=== PATIENT | male | born 1960 | race Caucasian/White ===

== ENCOUNTER 2021-03-07 23:35 | Inpatient (IN) | payer MEDICARE, OTHER ==
[~2021-03-07] VITALS: Ht 170.2 cm; Wt 90.7 kg
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
[2021-03-08 03:45] VITALS: BP 102/63
[2021-03-08] MEDS ORDERED: MAG HYDROX/AL HYDROX/SIMETH 30 ML UDC PO PRN ×2 (04:30→17:30)
[2021-03-08] MEDS ORDERED: ACETAMINOPHEN 325 MG TABLET PO PRN ×2 (04:30→17:30)
[2021-03-08] MEDS ORDERED: BLOOD SUGAR DIAGNOSTIC 1 EACH STRIP IN ONE (04:30)
[2021-03-08] MEDS ORDERED: MAGNESIUM HYDROXIDE 30 ML UDC PO PRN ×2 (04:30→17:30)
[2021-03-08] MEDS ORDERED: NICO-676 TP (05:09)
[2021-03-08] MEDS ORDERED: SENN-261 PO (05:09)
[2021-03-08] MEDS ORDERED: DIVA500T54 PO (05:09)
[2021-03-08] MEDS ORDERED: DIPH-530 PO (05:09)
[2021-03-08] MEDS ORDERED: DOCU-141 PO (05:09)
[2021-03-08] MEDS ORDERED: MINE133E RC (05:09)
[2021-03-08] MEDS ORDERED: QUET100T PO ×2 (05:09)
[2021-03-08] MEDS ORDERED: TRAZ300T2 PO (05:09)
[2021-03-08] MEDS ORDERED: QUET300T2 PO (05:09)
[2021-03-08] MEDS ORDERED: BISA10SU61 RC (05:09)
[2021-03-08 07:04] LABS: BILIRUBIN,TOTAL 0.2 mg/dL (0.2-1.0); CALCIUM, SERUM 9.1 mg/dL (8.5-10.1); CREATININE 0.8 mg/dL (0.6-1.3); POTASSIUM 4.1 mmol/L (3.5-5.1)
[2021-03-08 07:05] LABS: ALBUMIN 3.3 g/dL (3.4-5.0); TOTAL PROTEIN, SERUM 7.3 g/dL (6.4-8.2)
[2021-03-08] MEDS ORDERED: DIPH25TA62 PO (07:35)
[2021-03-08] MEDS ORDERED: NA P133E RC (07:35)
[2021-03-08] MEDS ORDERED: CHLO118L6 TP (07:35)
[2021-03-08] MEDS ORDERED: MAGN400O6 PO (07:35)
[2021-03-08] MEDS ORDERED: LORA-259 PO (07:35)
[2021-03-08] MEDS ORDERED: MAG30ORA PO (07:35)
[2021-03-08] MEDS ORDERED: ACET-868 PO (07:35)
[2021-03-08 08:00] VITALS: BP 101/69
[2021-03-08] MEDS: QUETIAPINE FUMARATE 100 MG TABLET PO SCH ×4 (14:00→23:36)
[2021-03-08] MEDS: DIVALPROEX SODIUM 500 MG TABLET.DR PO SCH ×3 (14:47→23:34)
[2021-03-08] MEDS ORDERED: DIPHENHYDRAMINE HCL 12.5 MG/5 ML UDC PO PRN (17:30)
[2021-03-08] MEDS ORDERED: BISACODYL SUPP (10 MG) 10 MG/SUPP.RECT SUPP.RECT RC PRN (17:30)
[2021-03-08] MEDS ORDERED: NA PHOS,M-B/NA PHOS,DI-BA 1 EA ENEMA RC PRN (17:30)
[2021-03-08] MEDS ORDERED: diphenhydrAMINE HCL ELIX 25 MG/10 ML UDC PO PRN (18:00)
[2021-03-08 20:00] VITALS: BP 135/87
[2021-03-08] MEDS: TRAZODONE 50 MG TABLET PO SCH ×2 (22:00→23:35)
[2021-03-08] MEDS: SENNOSIDES 8.6 MG TABLET PO SCH ×2 (22:00→23:35)
[2021-03-09] MEDS: DOCUSATE SODIUM 100 MG CAPSULE PO SCH ×3 (09:00→17:00)
[2021-03-09] MEDS: QUETIAPINE FUMARATE 100 MG TABLET PO SCH ×4 (09:00→21:32)
[2021-03-09] MEDS: DIVALPROEX SODIUM 500 MG TABLET.DR PO SCH ×4 (09:00→17:00)
[2021-03-09] MEDS: NICOTINE PATCH (14MG) 14 MG PATCH.TD24 TD SCH ×2 (09:00→09:16)
[2021-03-09] MEDS: LORAZEPAM 0.5 MG TABLET PO PRN (09:15)
--- NOTE | 2021-03-09 09:55 | NUR ---
pt. refused all am meds including ativan that's needed.
[2021-03-09] MEDS: ATORVASTATIN 10 MG TABLET PO SCH ×2 (11:00→21:32)
--- NOTE | 2021-03-09 18:41 | NUR ---
refused marline. meds.
--- NOTE | 2021-03-09 20:00 | NUR ---
REFUSED VITAL SIGNS PER SERENA MACK.
--- NOTE | 2021-03-09 20:00 | NUR ---
GPS OPENING NOTE seen patient in the room awake, sitting in chair, no complaints of pain or discomfort this time of assessment. patient appears unkempt, confused at some times. disheveled. pt paranoid states "get the fuck out of my room." reality orientation done. safety and fall precautions in place, q15 min checks will continue to monitor patient for mood, safety and behavior.
--- NOTE | 2021-03-09 21:29 | NUR ---
PT REFUSED EVENING MEDICATION. PT SITTING IN CHAIR IN ROOM. WHEN I ENTERED ROOM PT SHOUTED "GET OUT OF HERE." PT INFORMED THAT HIS MEDICATIONS WERE DUE AND THAT THE DOCTORS THINK ITS IMPORTANT FOR HIM TO TAKE THEM. PT YELLED "I DON'T WANT ANY. GET OUT OF HERE." PT LEFT TO SIT IN ROOM WILL CONT TO MONITOR BEHAVIOR. PT REMAINS SITTING IN CHAIR. WILL CONT TO MONITOR FOR AGGRESSIVE BEHAVIOR.
[2021-03-09] MEDS: TRAZODONE 50 MG TABLET PO SCH (21:32)
[2021-03-09] MEDS: SENNOSIDES 8.6 MG TABLET PO SCH (21:32)
[2021-03-09] MEDS: OLANZAPINE ZYDIS 5 MG TAB.RAPDIS PO SCH (21:33)
--- NOTE | 2021-03-10 00:51 | NUR ---
PT AWAKE; OFFERED PRN SLEEP MEDICATIONS REFUSED. OFFERED SNACKS REFUSED. PT IN ROOM SITTING IN CHAIR; QUIET. WILL CONT TO MONITOR.
[2021-03-10] MEDS: QUETIAPINE FUMARATE 100 MG TABLET PO SCH ×3 (09:00→22:21)
[2021-03-10] MEDS: NICOTINE PATCH (14MG) 14 MG PATCH.TD24 TD SCH (09:00)
[2021-03-10] MEDS: DOCUSATE SODIUM 100 MG CAPSULE PO SCH ×2 (09:00→16:52)
[2021-03-10] MEDS: OLANZAPINE ZYDIS 5 MG TAB.RAPDIS PO SCH ×2 (09:00→22:21)
[2021-03-10] MEDS: DIVALPROEX SODIUM 500 MG TABLET.DR PO SCH ×3 (09:00→16:52)
--- NOTE | 2021-03-10 09:00 | NUR ---
PT. REFUSING AM MEDS.
[2021-03-10] MEDS ORDERED: HALOPERIDOL LACTATE INJ 5 MG/ML VIAL IM STA (09:36)
[2021-03-10] MEDS ORDERED: diphenhydrAMINE HCL 50 MG/ML VIAL IM STA (09:36)
[2021-03-10] MEDS ORDERED: LORAZEPAM INJ 2 MG/ML VIAL IM STA (09:36)
--- NOTE | 2021-03-10 09:40 | NUR ---
PT. LYRIC MOORE AND CHAIR,DR. BEEBE CONTACTED.INJECTIONS ORDERED.
--- NOTE | 2021-03-10 09:55 | NUR ---
RN NOTE- DR BEEBE ORDERED HALDOL 5 MG , ATIVAN 2 MG AND BENADRYL 50 MG IM STAT. ADMINISTERED W STAFF ASSIST. PT LABILE, SCREAMING AND COMBATIVE.
--- NOTE | 2021-03-10 11:10 | NUR ---
RN NOTE- PT CALMER, QUIET SITTING IN CHAIR IN ROOM. ASKED IF PT WANTED FOOD OR FLUIDS AND HE RESPONDED "NO THANKS" CONTINUE TO MONITOR BEHAVIORS. ASSIST PRN. EMERGENCY IM RX EFFECTIVE
--- NOTE | 2021-03-10 14:10 | NUR ---
SNF Contact: SW contacted [facility] ([phone]) and spoke to the hospital admissions officer, Yoanna, who stated that the pt cannot return to the facility.
[2021-03-10 16:00] VITALS: BP 106/79
--- NOTE | 2021-03-10 16:10 | NUR ---
Conservator Contact: SW contacted the pts conservator, Ruben Lance ([phone]), and left a voicemail stating that the SW would like to discuss the pts treatment and discharge plan.
--- NOTE | 2021-03-10 16:47 | NUR ---
Initial Discharge Plan: Pt currently resides at [facility] located at [address] [id number]; ([phone]). Per Yoanna at the facility, pt cannot return. SW will work with the pt and the MD regarding appropriate discharge planning. SW will form a safe and proper discharge plan.
--- NOTE | 2021-03-10 18:30 | NUR ---
back in .med compliant and cooperative since he has had injections.
[2021-03-10] MEDS: TRAZODONE 50 MG TABLET PO SCH (22:20)
[2021-03-10] MEDS: SENNOSIDES 8.6 MG TABLET PO SCH (22:20)
[2021-03-10] MEDS: ATORVASTATIN 10 MG TABLET PO SCH (22:20)
--- NOTE | 2021-03-11 06:48 | NUR ---
GPS RN CLOSING NOTES: PATIENT IS LAYING ON BED SLEEPING. SLEPT 10HRS THIS SHIFT. PATIENT WAS MED COMPLIANT THIS SHIFT. NO S/S OF DISTRESS. RESPIRATION EVEN AND UNLABORED WITH EQUAL RISE AND FALL OF THE CHEST ON ROOM AIR. ALL PATIENT CARE NEEDS HAVE BEEN MET ANTICIPATED. BED IN LOWEST POSITION AND LOCKED WITH SIDE RAILS UP X2. WILL CONTINUE TO MONITOR FOR SAFETY, MOOD AND BEHAVIOR AND ENDORSE TO AM SHIFT
[2021-03-11] MEDS: DIVALPROEX SODIUM 500 MG TABLET.DR PO SCH ×3 (09:00→17:00)
[2021-03-11] MEDS: OLANZAPINE ZYDIS 5 MG TAB.RAPDIS PO SCH ×2 (09:00→21:54)
[2021-03-11] MEDS: NICOTINE PATCH (14MG) 14 MG PATCH.TD24 TD SCH (09:00)
[2021-03-11] MEDS: QUETIAPINE FUMARATE 100 MG TABLET PO SCH ×3 (09:00→21:54)
[2021-03-11] MEDS: DOCUSATE SODIUM 100 MG CAPSULE PO SCH ×2 (09:00→17:00)
--- NOTE | 2021-03-11 13:19 | NUR ---
Pt. refused to take Depakote due for 1300, explained on the importance and offered 3x and still refusing. Pt. said "no thanks".
--- NOTE | 2021-03-11 15:51 | NUR ---
Pt. is highly agitated, aggressive, yelling and screaming loud, banging the side rails of the bed and combative to care to the staffs. Pt. is disruptive to the unit and refusing to take po prn. Dr. Reno made aware of ordered Ativan 2 mg IM, Haldol 5 mg IM and Benadryl 50 mg IM.
[2021-03-11] MEDS ORDERED: HALOPERIDOL LACTATE INJ 5 MG/ML VIAL IM ONE (16:00)
[2021-03-11] MEDS ORDERED: LORAZEPAM INJ 2 MG/ML VIAL IM ONE (16:00)
[2021-03-11] MEDS ORDERED: diphenhydrAMINE HCL 50 MG/ML VIAL IV ONE (16:00)
[2021-03-11] MEDS ORDERED: diphenhydrAMINE HCL 50 MG/ML VIAL IM ONE (16:00)
--- NOTE | 2021-03-11 16:18 | NUR ---
Called the Ruben Barros at [phone] the conservator and left a message to call the unit.
[2021-03-11] MEDS: SENNOSIDES 8.6 MG TABLET PO SCH (21:54)
[2021-03-11] MEDS: TRAZODONE 50 MG TABLET PO SCH (21:54)
[2021-03-11] MEDS: ATORVASTATIN 10 MG TABLET PO SCH (21:54)
[2021-03-12] MEDS: NICOTINE PATCH (14MG) 14 MG PATCH.TD24 TD SCH (09:00)
--- NOTE | 2021-03-12 09:00 | NUR ---
RN NOTE PATIENT CALM AND DIRECTABLE AND MEDICATION COMPLIANT. PO INTAKE GOOD. REQUIRES FREQUENT REDIRECTION. RESPONDING TO INTERNAL STIMULUS.
[2021-03-12] MEDS: OLANZAPINE ZYDIS 5 MG TAB.RAPDIS PO SCH ×2 (09:27→21:53)
[2021-03-12] MEDS: QUETIAPINE FUMARATE 100 MG TABLET PO SCH ×3 (09:27→21:53)
[2021-03-12] MEDS: DOCUSATE SODIUM 100 MG CAPSULE PO SCH ×2 (09:27→17:00)
[2021-03-12] MEDS: DIVALPROEX SODIUM 500 MG TABLET.DR PO SCH ×3 (09:27→17:00)
[2021-03-12] MEDS ORDERED: diphenhydrAMINE HCL 50 MG/ML VIAL IM STA (13:09)
[2021-03-12] MEDS ORDERED: LORAZEPAM INJ 2 MG/ML VIAL IM STA (13:09)
[2021-03-12] MEDS ORDERED: HALOPERIDOL LACTATE INJ 5 MG/ML VIAL IM STA (13:09)
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
--- NOTE | 2021-03-12 14:50 | NUR ---
RN NOTE- PT SLEEPING QUIETLY. RX EFFECTIVE
[2021-03-12] MEDS: ATORVASTATIN 10 MG TABLET PO SCH (21:52)
[2021-03-12] MEDS: TRAZODONE 50 MG TABLET PO SCH (21:53)
[2021-03-12] MEDS: SENNOSIDES 8.6 MG TABLET PO SCH (21:54)
[2021-03-12] MEDS: TEMAZEPAM 7.5 MG CAPSULE PO PRN (22:26)
--- NOTE | 2021-03-12 22:33 | NUR ---
GPS RN NOTES: PATIENT REQUESTED FOR SLEEP MEDICATION. RESTORIL 7.5MG/1CAP GIVEN PO PRN AT 2226. WILL CONTINUE TO MONITOR.
--- NOTE | 2021-03-13 06:47 | NUR ---
GPS RN CLOSING NOTES: PATIENT IS CURRENTLY SLEEPING. SLEPT 8HRS THIS SHIFT AND WAS MED COMPLIANT THIS SHIFT. NO S/S OF DISTRESS. RESPIRATION EVEN AND UNLABORED WITH EQUAL RISE AND FALL OF THE CHEST ON ROOM AIR. ALL PATIENT CARE NEEDS HAVE BEEN MET ANTICIPATED. BED IN LOWEST POSITION AND LOCKED WITH SIDE RAILS UP X2. WILL CONTINUE TO MONITOR FOR SAFETY, MOOD AND BEHAVIOR AND ENDORSE TO AM SHIFT
[2021-03-13] MEDS: QUETIAPINE FUMARATE 100 MG TABLET PO SCH ×3 (09:00→21:37)
[2021-03-13] MEDS: NICOTINE PATCH (14MG) 14 MG PATCH.TD24 TD SCH (09:00)
[2021-03-13] MEDS: DIVALPROEX SODIUM 500 MG TABLET.DR PO SCH ×3 (09:00→17:00)
[2021-03-13] MEDS: OLANZAPINE ZYDIS 5 MG TAB.RAPDIS PO SCH ×2 (09:00→21:53)
[2021-03-13] MEDS: DOCUSATE SODIUM 100 MG CAPSULE PO SCH ×2 (09:00→17:00)
--- NOTE | 2021-03-13 09:25 | NUR ---
Pt. refused for V/S checked, refused to eat breakfast and pt. refused to take meds due for 0900. Explained on the importance and offered 3x and still refusing. Pt. said "No, I don't take meds". Will continue to monitor.
--- NOTE | 2021-03-13 10:20 | NUR ---
Pt. is highly agitated, aggressive, combative, striking to staffs, screaming and yelling. Dr. Emerson in the unit and ordered Ativan 2 mg IM, Haldol 5 mg IM and Benadryl 50 mg IM.
[2021-03-13] MEDS ORDERED: HALOPERIDOL LACTATE INJ 5 MG/ML VIAL IM ONE (10:30)
[2021-03-13] MEDS ORDERED: diphenhydrAMINE HCL 50 MG/ML VIAL IM ONE (10:30)
[2021-03-13] MEDS ORDERED: LORAZEPAM INJ 2 MG/ML VIAL IM ONE (10:30)
--- NOTE | 2021-03-13 10:47 | NUR ---
Pt. is resistive and combative by the time to give the Injections. Security guards and staffs help to hold pt. for the injections.
--- NOTE | 2021-03-13 13:15 | NUR ---
Called Ruben Barros at [phone] and spoke to Randa and said she will notify Ruben Barros about the incident.
--- NOTE | 2021-03-13 13:35 | NUR ---
Pt. refused to take Depakote due for 1300 and irritable when offered.
--- NOTE | 2021-03-13 17:34 | NUR ---
Pt. refused to take Depakote, Colace and Seroquel due for 1700 and started shouting and irritable when offered.
[2021-03-13] MEDS: SENNOSIDES 8.6 MG TABLET PO SCH (21:37)
[2021-03-13] MEDS: TRAZODONE 50 MG TABLET PO SCH (21:37)
[2021-03-13] MEDS: ATORVASTATIN 10 MG TABLET PO SCH (21:37)
[2021-03-14] MEDS: TEMAZEPAM 7.5 MG CAPSULE PO PRN (02:14)
--- NOTE | 2021-03-14 02:15 | NUR ---
RN NOTES: INSOMNIA PT.C/O UNABLE TO SLEEP, RESTORIL 7.5 MG PO PRN GIVEN PER PT. REQUEST, WILL CONTINUE TO MONITOR.
[2021-03-14] MEDS: LORAZEPAM 0.5 MG TABLET PO PRN (06:18)
--- NOTE | 2021-03-14 06:22 | NUR ---
RN NOTES: PT.NOTED TO BE ANXIOUS , ATIVAN 0.5 MG PO PRN GIVEN ,WILL CONTINUE TO MONITOR.
--- NOTE | 2021-03-14 07:28 | NUR ---
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
[2021-03-14] MEDS: OLANZAPINE ZYDIS 5 MG TAB.RAPDIS PO SCH ×2 (09:00→22:00)
[2021-03-14] MEDS: DOCUSATE SODIUM 100 MG CAPSULE PO SCH ×2 (09:00→17:17)
[2021-03-14] MEDS: NICOTINE PATCH (14MG) 14 MG PATCH.TD24 TD SCH (09:00)
[2021-03-14] MEDS: QUETIAPINE FUMARATE 100 MG TABLET PO SCH ×3 (09:00→22:00)
[2021-03-14] MEDS: DIVALPROEX SODIUM 500 MG TABLET.DR PO SCH ×3 (09:00→12:46)
[2021-03-14] MEDS ORDERED: HALOPERIDOL LACTATE INJ 5 MG/ML VIAL IM STA (13:25)
[2021-03-14] MEDS ORDERED: diphenhydrAMINE HCL 50 MG/ML VIAL IM STA (13:25)
[2021-03-14] MEDS ORDERED: LORAZEPAM INJ 2 MG/ML VIAL IM STA (13:25)
--- NOTE | 2021-03-14 13:40 | NUR ---
Patient agitated ,yelling ,throwing walker to staff ,not following directions .Tried to calm patient down ,offered po Ativan ,1:1 interaction with patient but unsuccessful ,called with new order Ativan 2mg IM ,Haldol 5mg IM and Benadryl 50mg IM,given IM injection by primary NURSE at 13:40 no physical hold and patient accept the injection voluntarily .patient refused VS x4 every 15 minutes ,no SOB ,no s/s of distress noted patient tolerated injection well ,will continue to monitor .
[2021-03-14] MEDS: TRAZODONE 50 MG TABLET PO SCH (22:00)
[2021-03-14] MEDS: ATORVASTATIN 10 MG TABLET PO SCH (22:00)
[2021-03-14] MEDS: SENNOSIDES 8.6 MG TABLET PO SCH (22:00)
--- NOTE | 2021-03-14 22:00 | NUR ---
GPS RN NOTE PT REFUSED ALL THE HS MEDS. BECOMES AGITATED VERY FAST.
--- NOTE | 2021-03-15 | NUR ---
GPS RN NOTE PT REFUSED WEEKLY SKIN ASSESSMENT PICTURES.
[2021-03-15] MEDS: DOCUSATE SODIUM 100 MG CAPSULE PO SCH ×2 (08:19→16:26)
[2021-03-15] MEDS: QUETIAPINE FUMARATE 100 MG TABLET PO SCH (08:19)
[2021-03-15] MEDS: OLANZAPINE ZYDIS 5 MG TAB.RAPDIS PO SCH (08:19)
[2021-03-15] MEDS: DIVALPROEX SODIUM 500 MG TABLET.DR PO SCH ×3 (08:19→16:26)
[2021-03-15] MEDS: NICOTINE PATCH (14MG) 14 MG PATCH.TD24 TD SCH (08:19)
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
--- NOTE | 2021-03-15 10:20 | NUR ---
SNF Referral: REYES faxed a referral to [facility] with attn to Payton to the fax number: [phone].
[2021-03-15] MEDS ORDERED: HALOPERIDOL LACTATE INJ 5 MG/ML VIAL IM PRN (12:00)
[2021-03-15] MEDS: HALOPERIDOL 5 MG TABLET PO SCH (16:00)
[2021-03-15] MEDS: ATORVASTATIN 10 MG TABLET PO SCH ×2 (21:07→21:22)
[2021-03-15] MEDS: TRAZODONE 50 MG TABLET PO SCH ×2 (21:07→21:22)
[2021-03-15] MEDS: SENNOSIDES 8.6 MG TABLET PO SCH ×2 (21:07→21:22)
[2021-03-16 08:00] VITALS: BP 123/93
[2021-03-16] MEDS: DIVALPROEX SODIUM 500 MG TABLET.DR PO SCH ×3 (08:23→16:37)
[2021-03-16] MEDS: HALOPERIDOL 5 MG TABLET PO SCH ×2 (08:23→16:37)
[2021-03-16] MEDS: DOCUSATE SODIUM 100 MG CAPSULE PO SCH ×2 (08:23→16:37)
[2021-03-16] MEDS: NICOTINE PATCH (14MG) 14 MG PATCH.TD24 TD SCH (08:23)
--- NOTE | 2021-03-16 09:00 | NUR ---
RN NOTE- PT ALERT INTERACTIVE, LESS PSYCHOTIC THIS MORNING, SLEPT WELL, PO INTAKE GOOD, PO RX COMPLIANT, DIRECTABLE CALM, STILL RESPONDING AND INTERNALLY PREOCCUPIED
[2021-03-16 13:23] LABS: BILIRUBIN,URINE NEGATIVE (NEGATIVE); COLOR,URINE YELLOW (YELLOW); LEUKOCYTE ESTERASE ,URINE NEGATIVE (NEGATIVE); NITRITE, URINE NEGATIVE (NEGATIVE); PH,URINE 6.5 (5.0-8.0); PROTEIN,URINE NEGATIVE (NEGATIVE); UGLUCOSE NEGATIVE (NEGATIVE)
[2021-03-16 13:34] LABS: RBC,URINE NONE SEEN /HPF (0-2); WBC,URINE 0-2 /HPF (0-3)
[2021-03-16 13:35] LABS: BACTERIA,URINE Rare /HPF (None Seen); SQUAMOUS EPITHELIAL CELL,UR Rare /HPF (None Seen)
--- NOTE | 2021-03-16 14:07 | NUR ---
SNF Contact: IVET ([phone]) from [facility] contacted the SW and stated that the pt was not approved due to aggressive behavior.
--- NOTE | 2021-03-16 14:10 | NUR ---
Conservator Contact: SW contacted the pts conservator, Ruben Lance ([phone]), and left a voicemail stating that the SW would like to discuss the pts treatment and discharge plan.
[2021-03-16 16:00] VITALS: BP 127/93
[2021-03-16] MEDS: TRAZODONE 50 MG TABLET PO SCH (21:14)
[2021-03-16] MEDS: ATORVASTATIN 10 MG TABLET PO SCH (21:14)
[2021-03-16] MEDS: SENNOSIDES 8.6 MG TABLET PO SCH (21:15)
[2021-03-17 08:00] VITALS: BP 129/100
[2021-03-17] MEDS: NICOTINE PATCH (14MG) 14 MG PATCH.TD24 TD SCH ×2 (08:43→09:00)
[2021-03-17] MEDS: HALOPERIDOL 5 MG TABLET PO SCH ×2 (08:43→17:30)
[2021-03-17] MEDS: DOCUSATE SODIUM 100 MG CAPSULE PO SCH ×2 (08:43→17:30)
[2021-03-17] MEDS: DIVALPROEX SODIUM 500 MG TABLET.DR PO SCH ×3 (08:43→17:29)
[2021-03-17] MEDS: LORAZEPAM 0.5 MG TABLET PO PRN (14:47)
--- NOTE | 2021-03-17 14:50 | NUR ---
given ativan for restlessness.
[2021-03-17 16:00] VITALS: BP 154/91
[2021-03-17] MEDS ORDERED: HALOPERIDOL DECANOATE IM 100 MG/ML AMPUL IM ONE (16:30)
--- NOTE | 2021-03-17 18:57 | NUR ---
received haldol decanoate injection.
[2021-03-17 20:36] VITALS: BP 127/93
[2021-03-17] MEDS: TRAZODONE 50 MG TABLET PO SCH (21:17)
[2021-03-17] MEDS: ATORVASTATIN 10 MG TABLET PO SCH (21:17)
[2021-03-17] MEDS: SENNOSIDES 8.6 MG TABLET PO SCH (21:17)
[2021-03-18 08:00] VITALS: BP 118/91
[2021-03-18] MEDS: DOCUSATE SODIUM 100 MG CAPSULE PO SCH ×2 (08:03→16:00)
[2021-03-18] MEDS: HALOPERIDOL 5 MG TABLET PO SCH ×2 (08:03→16:00)
[2021-03-18] MEDS: DIVALPROEX SODIUM 500 MG TABLET.DR PO SCH ×3 (08:03→16:00)
[2021-03-18] MEDS: NICOTINE PATCH (14MG) 14 MG PATCH.TD24 TD SCH ×2 (08:03→08:07)
--- NOTE | 2021-03-18 10:07 | NUR ---
Conservator Contact: SW contacted the pts conservator, Ruben Lance ([phone]), and left a voicemail stating that the pt cannot return to the SNF that he came from and that the SW needs placement.
[2021-03-18] MEDS: LORAZEPAM 0.5 MG TABLET PO PRN (14:48)
[2021-03-18 16:00] VITALS: BP 116/85
[2021-03-18 20:06] VITALS: BP 132/72
[2021-03-18] MEDS: SENNOSIDES 8.6 MG TABLET PO SCH (21:13)
[2021-03-18] MEDS: ATORVASTATIN 10 MG TABLET PO SCH (21:13)
[2021-03-18] MEDS: TRAZODONE 50 MG TABLET PO SCH (21:13)
[2021-03-18] MEDS: TEMAZEPAM 7.5 MG CAPSULE PO PRN (21:54)
--- NOTE | 2021-03-18 21:54 | NUR ---
RN NOTES: INSOMNIA PT.C/O UNABLE TO SLEEP, RESTORIL 7.5 MG PO PRN GIVEN PER PT. REQUEST, WILL CONTINUE TO MONITOR.
[2021-03-19 08:00] VITALS: BP 130/88
[2021-03-19] MEDS: HALOPERIDOL 5 MG TABLET PO SCH ×2 (08:06→16:20)
[2021-03-19] MEDS: NICOTINE PATCH (14MG) 14 MG PATCH.TD24 TD SCH (08:06)
[2021-03-19] MEDS: DOCUSATE SODIUM 100 MG CAPSULE PO SCH ×2 (08:06→16:21)
[2021-03-19] MEDS: DIVALPROEX SODIUM 500 MG TABLET.DR PO SCH ×3 (08:06→16:20)
--- NOTE | 2021-03-19 09:00 | NUR ---
RN NOTE- PT IS ALERT ORIENTED TO SELF, INCONTINENT IN BED, ASSISTED TO SHOWER, CHANGED LINENS, PO INTAKE GOOD MED COMPLIANT, GARBLED SPEECH , CONFUSED , DISORGANIZED
--- NOTE | 2021-03-19 09:20 | NUR ---
Conservator Contact: SW contacted the pts conservator, Ruben Lance ([phone]), and left a voicemail stating that the SW needs to know where to refer the pt as the pt cannot return to where he was previously residing.
[2021-03-19 16:00] VITALS: BP 140/91
[2021-03-19] MEDS: LORAZEPAM 0.5 MG TABLET PO PRN (19:30)
--- NOTE | 2021-03-19 19:32 | NUR ---
RN NOTES: ANXIETY PT. NOTED VERY ANXIOUS YELLING SCREAMING , ATIVAN 0.5 MG PO PRN GIVEN ,WILL CONTINUE TO MONITOR.
[2021-03-19 19:57] VITALS: BP 126/69
[2021-03-19] MEDS: TRAZODONE 50 MG TABLET PO SCH (21:21)
[2021-03-19] MEDS: ATORVASTATIN 10 MG TABLET PO SCH (21:21)
[2021-03-19] MEDS: SENNOSIDES 8.6 MG TABLET PO SCH (21:21)
[2021-03-19] MEDS: TEMAZEPAM 7.5 MG CAPSULE PO PRN (22:07)
--- NOTE | 2021-03-19 22:08 | NUR ---
RN NOTES: INSOMNIA PT.C/O UNABLE TO SLEEP, RESTORIL 7.5 MG PO PRN GIVEN PER PT. REQUEST, WILL CONTINUE TO MONITOR.
[2021-03-20 08:00] VITALS: BP_SYST 119; BP_DIAS 57; BP_DIAS 68
[2021-03-20] MEDS: NICOTINE PATCH (14MG) 14 MG PATCH.TD24 TD SCH (09:00)
[2021-03-20] MEDS: DIVALPROEX SODIUM 500 MG TABLET.DR PO SCH ×3 (09:03→17:10)
[2021-03-20] MEDS: HALOPERIDOL 5 MG TABLET PO SCH ×2 (09:03→17:10)
[2021-03-20] MEDS: DOCUSATE SODIUM 100 MG CAPSULE PO SCH ×2 (09:03→17:10)
[2021-03-20] MEDS: LORAZEPAM 0.5 MG TABLET PO PRN ×2 (10:39→19:25)
--- NOTE | 2021-03-20 10:58 | NUR ---
Pt. is agitated, screaming and yelling very loud. Pt. had Ativan po prn 15 minutes ago and pt.was redirected and still pt. is agitated, screaming and yelling and agreed for an injection. Notified Dr. Reno and ordered Zyprexa 5 mg IM.
[2021-03-20] MEDS ORDERED: OLANZAPINE 10 MG VIAL IM ONE (11:00)
--- NOTE | 2021-03-20 11:12 | NUR ---
IM meds of Zyprexa 5 mg IM given on the left deltoid. Pt. is not resistive and cooperative.
--- NOTE | 2021-03-20 13:09 | NUR ---
Nguyễn GOLDMAN not given due for 1300. Pt. is drowsy. Pt. just had Zyprexa IM. Will continue to monitor for safety.
[2021-03-20 14:00] VITALS: BP 122/87
--- NOTE | 2021-03-20 19:25 | NUR ---
RN NOTES: ANXIETY PT. NOTED VERY ANXIOUS ,YELLING, SCREAMING, HYPERVERBAL , ATIVAN 0.5 MG PO PRN GIVEN ,WILL CONTINUE TO MONITOR.
[2021-03-20 19:59] VITALS: BP 137/87
[2021-03-20] MEDS: ATORVASTATIN 10 MG TABLET PO SCH (21:06)
[2021-03-20] MEDS: TRAZODONE 50 MG TABLET PO SCH (21:06)
[2021-03-20] MEDS: SENNOSIDES 8.6 MG TABLET PO SCH (21:06)
[2021-03-20] MEDS: TEMAZEPAM 7.5 MG CAPSULE PO PRN (22:30)
--- NOTE | 2021-03-20 22:30 | NUR ---
RN NOTES: INSOMNIA PT.C/O UNABLE TO SLEEP, RESTORIL 7.5 MG PO PRN GIVEN PER PT. REQUEST, WILL CONTINUE TO MONITOR.
[2021-03-21] MEDS: LORAZEPAM 0.5 MG TABLET PO PRN ×2 (04:11→10:46)
--- NOTE | 2021-03-21 04:13 | NUR ---
RN NOTES: ANXIETY PT. NOTED VERY ANXIOUS ,YELLING, SCREAMING, HYPERVERBAL , ATIVAN 0.5 MG PO PRN GIVEN ,WILL CONTINUE TO MONITOR.
[2021-03-21 08:00] VITALS: BP 116/79
[2021-03-21] MEDS: NICOTINE PATCH (14MG) 14 MG PATCH.TD24 TD SCH (08:38)
[2021-03-21] MEDS: DIVALPROEX SODIUM 500 MG TABLET.DR PO SCH ×3 (08:38→17:28)
[2021-03-21] MEDS: HALOPERIDOL 5 MG TABLET PO SCH ×2 (08:38→17:29)
[2021-03-21] MEDS: DOCUSATE SODIUM 100 MG CAPSULE PO SCH ×2 (08:49→17:29)
--- NOTE | 2021-03-21 10:46 | NUR ---
Patient agitated and medicated with Ativan 0.5mg po will continue to monitor .
--- NOTE | 2021-03-21 10:46 | NUR ---
Patient c/o itching medicated with Benadryl po will continue to monitor .
[2021-03-21] MEDS ORDERED: OLANZAPINE 10 MG VIAL IM STA (11:50)
--- NOTE | 2021-03-21 11:51 | NUR ---
Patient agitated ,yelling ,not following directions .Zyprexa 5mg IM given , no physical hold and patient accept the injection voluntarily .patient refused VS x4 every 15 minutes ,no SOB ,no s/s of distress noted patient tolerated injection well ,will continue to monitor .
[2021-03-21] MEDS ORDERED: HALOPERIDOL DECANOATE IM 100 MG/ML AMPUL IM ONE (14:30)
--- NOTE | 2021-03-21 15:26 | NUR ---
patient c/o back pain medicated with Tylenol 650mg will continue to monitor .
[2021-03-21 16:00] VITALS: BP 147/96
[2021-03-21 20:58] VITALS: BP 127/68
[2021-03-21] MEDS: TRAZODONE 50 MG TABLET PO SCH (21:43)
[2021-03-21] MEDS: ATORVASTATIN 10 MG TABLET PO SCH (21:44)
[2021-03-21] MEDS: SENNOSIDES 8.6 MG TABLET PO SCH (21:44)
--- NOTE | 2021-03-22 06:37 | NUR ---
GPS RN CLOSING NOTES: PATIENT IS CURRENTLY LAYING ON BED SLEEPING INTERMITTENTLY. PATIENT SLEPT 5HRS THIS SHIFT. WEEKLY SKIN ASSESSMENT DONE, PICTURES TAKEN AND PLACED IN PATIENT CHART. PATIENT WAS MED COMPLIANT THIS SHIFT. NO S/S OF DISTRESS. RESPIRATION EVEN AND UNLABORED WITH EQUAL RISE AND FALL OF THE CHEST ON ROOM AIR. BED IN LOWEST POSITION AND LOCKED WITH SIDE RAILS UP X2. WILL CONTINUE TO MONITOR FOR SAFETY, MOOD AND BEHAVIOR AND ENDORSE TO AM SHIFT.
[2021-03-22 08:00] VITALS: BP 123/90
[2021-03-22] MEDS: DOCUSATE SODIUM 100 MG CAPSULE PO SCH ×2 (08:03→17:39)
[2021-03-22] MEDS: DIVALPROEX SODIUM 500 MG TABLET.DR PO SCH ×3 (08:04→17:39)
[2021-03-22] MEDS: NICOTINE PATCH (14MG) 14 MG PATCH.TD24 TD SCH (08:04)
[2021-03-22] MEDS: HALOPERIDOL 5 MG TABLET PO SCH ×2 (08:04→17:40)
--- NOTE | 2021-03-22 11:20 | NUR ---
Conservator Contact: SW contacted the pts conservator, Ruben Lance ([phone]), and left a voicemail stating that the pt will be discharged soon and the SW referred the pt to an alternate SNF that she would like to speak to the conservator about.
--- NOTE | 2021-03-22 12:47 | NUR ---
SNF Referral: REYES faxed a referral to [facility] with attn to Shanell to the fax number: [phone].
[2021-03-22 16:00] VITALS: BP 154/73
[2021-03-22 20:00] VITALS: BP 133/83
[2021-03-22] MEDS: ATORVASTATIN 10 MG TABLET PO SCH (21:12)
[2021-03-22] MEDS: TRAZODONE 50 MG TABLET PO SCH (21:12)
[2021-03-22] MEDS: SENNOSIDES 8.6 MG TABLET PO SCH (21:12)
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
[2021-03-23 08:00] VITALS: BP 126/83
[2021-03-23] MEDS: HALOPERIDOL 5 MG TABLET PO SCH ×2 (08:23→16:44)
[2021-03-23] MEDS: DOCUSATE SODIUM 100 MG CAPSULE PO SCH ×2 (08:23→16:44)
[2021-03-23] MEDS: NICOTINE PATCH (14MG) 14 MG PATCH.TD24 TD SCH (08:24)
[2021-03-23] MEDS: DIVALPROEX SODIUM 500 MG TABLET.DR PO SCH ×3 (08:24→16:44)
--- NOTE | 2021-03-23 09:00 | NUR ---
RN NOTE- PT CONFUSED AND WITHDRAWN. MINIMAL INTERACTION, MUMBLING TO SELF THOUGH CALM. MED COMPLIANT GOOD INTAKE , NO COMBATIVENESS OR YELLING
--- NOTE | 2021-03-23 13:05 | NUR ---
SNF Contact: Shanell ([phone]) from [facility] contacted the SW and stated that the pt was accepted to their facility.
--- NOTE | 2021-03-23 14:07 | NUR ---
Conservator Contact: SW contacted the pts conservator, Ruben Lance ([phone]), and left a voicemail stating that the pt is being discharged and SW found placement at [facility]. SW asked for a call back if there is any objection and stated that she has made multiple attempts to contact him.
--- NOTE | 2021-03-23 16:16 | NUR ---
Discharge Note: Pt will be discharged to [facility] ([facility]) located at [address] [place] [address]; to 28. Pt will be transported via [facility] at 5:30PM. SW contacted the pts conservator, Ruben Lance ([phone]), and informed him of the discharge via voicemail. Upon discharge, the pt appears to be in a euthymic mood and presented with a congruent affect. Pt appears to be alert and oriented x4 (time, place, self and situation). Pt denies both suicidal and homicidal ideation as well as auditory and visual hallucinations. Pt will be under the care of psychiatrist, Dr. Emerson, located at [address] [address], [place] [address]; and slot shift supervisor, Dr. Sebastian, located at [address] [place] [address]; . Pts choice of vendor form and multidisciplinary exit care form were done, printed, signed, and given to the patient.
--- NOTE | 2021-03-23 19:47 | NUR ---
GPS-DENTAL HYGIENIST NOTES: PATIENT DISCHARGED TO [facility] ([facility]) IN STABLE CONDITION. A/OX1-2. VERBALLY RESPONSIVE. V/S TAKEN, STABLE AND RECORDED. DISCHARGED INSTRUCTIONS REPORTED TO MARYAM SHAIKH OF [facility]. HEALTH TEACHINGS GIVEN TO PATIENT. EXIT FOLDER HANDED TO EMT'S. PATIENT LEFT UNIT VIA [facility] AT 1918. CHARGE NURSE AWARE OF DISCHARGE.
== END 2021-03-23 19:58 | DRG 885 ==
LOC: GPS 03-08 03:31
PROVIDERS: ADMIT Psychiatry & Neurology Psychiatry; ATTEND Student in an Organized Health Care Education/Training Program
DX: F25.9 Schizoaffective disorder, unspecified (principal); F01.50 Vascular dementia, unspecified severity, without behavioral disturbance, psychotic disturbance, mood disturbance, and anxiety; E44.1 Mild protein-calorie malnutrition; G93.40 Encephalopathy, unspecified; F29 Unspecified psychosis not due to a substance or known physiological condition; F41.9 Anxiety disorder, unspecified; E78.5 Hyperlipidemia, unspecified; M19.90 Unspecified osteoarthritis, unspecified site; F32.9 Major depressive disorder, single episode, unspecified; M62.50 Muscle wasting and atrophy, not elsewhere classified, unspecified site; F17.210 Nicotine dependence, cigarettes, uncomplicated; Z68.31 Body mass index [BMI] 31.0-31.9, adult; Z20.822 Contact with and (suspected) exposure to COVID-19; Z73.6 Limitation of activities due to disability
CPT/HCPCS: 36415; 80053-TC; 80061-TC; 81001; 82962-TC; 84443-TC; 87081-TC; 97112-TC; 97116-TC; 97530-TC; J1200; J1630; J1631; J2060; J3490; Q0163

== ENCOUNTER 2024-04-23 18:29 | Inpatient (IN) | payer MEDICARE, OTHER ==
[~2024-04-23] VITALS: Ht 172.7 cm; Wt 66.7 kg
[~2024-04-23 18:29] MED LIST: ACET-868 PO; BISA10SU61 RC; CHLO118L6 TP; DIPH25TA62 PO; DOCU-141 PO; MAG30ORA PO; MAGN400O6 PO; NA P133E RC; NICO-676 TP; SENN-261 PO
[2024-04-23 19:26] LABS: BASOPHILS % (AUTO) 0.2 % (0.0-2.0); EOSINOPHILS % (AUTO) 0.9 % (0.0-6.0); HEMATOCRIT 39 % (39-51); HEMOGLOBIN 13.4 g/dL (13.5-17.5); LYMPHOCYTES % (AUTO) 17.8 % (20.0-44.0); MEAN CORPUSCULAR HEMOGLOBIN 31 PG (26.0-33.0); MEAN CORPUSCULAR HGB CONC 34 g/dl (31.0-36.0); MEAN CORPUSCULAR VOLUME 92 fL (80-96); MONOCYTES % (AUTO) 9.9 % (2.0-12.0); NEUTROPHILS % (AUTO) 71.2 % (43.0-81.0); PLATELET COUNT (AUTO) 178 K/uL (150-450); RED BLOOD CELL COUNT(AUTO) 4.28 MIL/uL (4.5-6.0); RED CELL DISTRIBUTION WIDTH 15.6 % (11.5-15.0); WHITE BLOOD COUNT (AUTO) 8.3 K/uL (4.3-11.0)
[2024-04-23 19:27] LABS: EOSINOPHILS # (AUTO) 0.1 K/uL (0.0-0.7); LYMPHOCYTES # (AUTO) 1.5 K/uL (0.8-4.8); MONOCYTES # (AUTO) 0.8 K/uL (0.1-1.30); NEUTROPHILS # (AUTO) 5.9 K/uL (1.8-8.9)
[2024-04-23] MEDS ORDERED: GUAI100S69 PO (19:41)
[2024-04-23] MEDS ORDERED: POLY15DR31 EACHEYE (19:41)
[2024-04-23] MEDS ORDERED: ASCO500T21 PO (19:41)
[2024-04-23] MEDS ORDERED: CHOL500062 PO (19:41)
[2024-04-23] MEDS ORDERED: BENZ2TAB7 PO (19:41)
[2024-04-23] MEDS ORDERED: POLY17PO4 PO (19:41)
[2024-04-23] MEDS ORDERED: MELA1TAB27 PO (19:41)
[2024-04-23] MEDS ORDERED: MULT-24 PO (19:41)
[2024-04-23] MEDS ORDERED: TIOT18CA3 IH (19:41)
[2024-04-23] MEDS ORDERED: RISP1TAB7 PO (19:41)
[2024-04-23] MEDS ORDERED: SENN8.6T19 PO (19:41)
[2024-04-23] MEDS ORDERED: LEVE500T20 PO (19:41)
[2024-04-23] MEDS ORDERED: AMIN946L5 PO (19:41)
[2024-04-23] MEDS ORDERED: DIVA-78 PO (19:41)
[2024-04-23] MEDS ORDERED: TRAZ-182 PO (19:41)
[2024-04-23 19:56] LABS: ALANINE AMINOTRANSFERASE 11 U/L (12-78); ALBUMIN 2.5 g/dL (3.4-5.0); ALKALINE PHOSPHATASE 62 U/L (46-116); ASPARTATE AMINOTRANSFERASE 9 U/L (15-37); BILIRUBIN,DIRECT 0.1 mg/dL (0.0-0.2); BILIRUBIN,TOTAL 0.2 mg/dL (0.2-1.0); CALCIUM, SERUM 9.1 mg/dL (8.5-10.1); CARBON DIOXIDE 26 mmol/L (21-32); CHLORIDE 107 mmol/L (98-107); CREATININE 0.7 mg/dL (0.6-1.3); GLUCOSE 125 mg/dL (74-106); POTASSIUM 3.8 mmol/L (3.5-5.1); SODIUM SERUM 141 mmol/L (136-145); TOTAL PROTEIN, SERUM 6.9 g/dL (6.4-8.2); UREA NITROGEN, BLOOD 13 mg/dL (7-18)
[2024-04-23 19:59] LABS: ACETAMINOPHEN 0 ug/ml (10-30); SALICYLATE 1.1 mg/dL (2.8-20.0)
[2024-04-23 20:00] LABS: ALCOHOL, BLOOD < 3 mg/dL (0-10)
[2024-04-23 21:06] LABS: APPEARANCE,URINE CLEAR (CLEAR); BILIRUBIN,URINE NEGATIVE (NEGATIVE); BLOOD, URINE NEGATIVE Ery/uL (NEGATIVE); COLOR,URINE YELLOW (YELLOW); KETONES,URINE NEGATIVE (NEGATIVE); LEUKOCYTE ESTERASE ,URINE NEGATIVE (NEGATIVE); NITRITE, URINE NEGATIVE (NEGATIVE); PH,URINE 6.5 (5.0-8.0); PROTEIN,URINE NEGATIVE (NEGATIVE); UGLUCOSE NEGATIVE (NEGATIVE)
[2024-04-23 21:13] LABS: ADD URINE CULTURE NO; BACTERIA,URINE Rare /HPF (None Seen); RBC,URINE 0-2 /HPF (0-2); SQUAMOUS EPITHELIAL CELL,UR 0-2 /HPF (None Seen); WBC,URINE 0-2 /HPF (0-3)
[2024-04-23 21:19] LABS: AMPHETAMINE, URINE NEGATIVE (NEGATIVE); BARBITURATE, URINE NEGATIVE (NEGATIVE); BENZODIAZEPINE, URINE NEGATIVE (NEGATIVE); CANNABINOID, URINE NEGATIVE (NEGATIVE); COCCAINE, URINE NEGATIVE (NEGATIVE); OPIATE, URINE NEGATIVE (NEGATIVE); PHENCYCLIDINE SCREEN,URINE NEGATIVE (NEGATIVE)
[2024-04-24] MEDS ORDERED: ACETAMINOPHEN 325 MG TABLET PO PRN ×2 (00:30→01:00)
[2024-04-24] MEDS ORDERED: MAGNESIUM HYDROXIDE 30 ML UDC PO PRN (00:30)
[2024-04-24] MEDS ORDERED: MAG HYDROX/AL HYDROX/SIMETH 30 ML UDC PO PRN (00:30)
[2024-04-24] MEDS ORDERED: IPRATROPIUM NEB FS 0.5 MG/2.5 ML AMPUL.NEB NEB SCH (01:00)
[2024-04-24] MEDS ORDERED: GUAIFENESIN 300 MG/15 ML UDC PO PRN (01:00)
[2024-04-24 02:08] VITALS: BP 109/95; TEMP 98.6; O2SAT 96
[2024-04-24] MEDS: BLOOD SUGAR DIAGNOSTIC 1 EACH STRIP IN ONE (02:47)
[2024-04-24 07:56] LABS: ALBUMIN 2.4 g/dL (3.4-5.0); BILIRUBIN,TOTAL 0.3 mg/dL (0.2-1.0); CALCIUM, SERUM 8.3 mg/dL (8.5-10.1); CREATININE 0.5 mg/dL (0.6-1.3); TOTAL PROTEIN, SERUM 6.8 g/dL (6.4-8.2)
[2024-04-24 08:00] VITALS: BP 110/84; TEMP 99.9; O2SAT 96
[2024-04-24] MEDS: IPRATROPIUM NEB FS 0.5 MG/2.5 ML AMPUL.NEB NEB SCH (08:05)
[2024-04-24 08:06] VITALS: O2SAT 96; O2SAT 98
[2024-04-24] MEDS ORDERED: SENNOSIDES 8.6 MG TABLET PO SCH (09:00)
[2024-04-24] MEDS: DOCUSATE SODIUM 100 MG CAPSULE PO SCH (12:17)
[2024-04-24] MEDS: DIVALPROEX SODIUM 500 MG TABLET.DR PO SCH (12:17)
[2024-04-24] MEDS: POLYETHYLENE GLYCOL 3350 17 GM POWD.PACK PO SCH (12:18)
[2024-04-24] MEDS: ASCORBIC ACID 500 MG TABLET PO SCH (12:18)
[2024-04-24] MEDS: risperiDONE 1 MG TABLET PO SCH (12:18)
[2024-04-24] MEDS: MULTIVITAMINS,THERAGRAN 1 UDTAB TABLET PO SCH (12:18)
[2024-04-24 16:00] VITALS: BP 120/97; TEMP 97.7; O2SAT 99
[2024-04-24] MEDS: BENZTROPINE MESYLATE (2MG/2ML) 2 MG/2 ML AMPUL IM SCH (17:38)
[2024-04-24 20:00] VITALS: BP 111/88; TEMP 97.9; O2SAT 97
[2024-04-24] MEDS: SENNOSIDES 8.6 MG TABLET PO SCH (21:37)
[2024-04-25 07:17] LABS: CHOLESTEROL 191 mg/dL (<200); HDL CHOLESTEROL 39 mg/dL (40-60); LDL 133 mg/dL (0-99); TRIGLYCERIDES 131 mg/dL (30-150)
[2024-04-25 08:00] VITALS: BP 106/84; TEMP 97.9; O2SAT 96
[2024-04-25] MEDS: BENZTROPINE MESYLATE (1 MG) 1 MG TABLET PO SCH (10:43)
[2024-04-25 16:00] VITALS: BP 105/80; TEMP 98.6; O2SAT 98
[2024-04-25 20:00] VITALS: BP 103/85; TEMP 97.6; O2SAT 98
[2024-04-26 08:00] VITALS: BP 108/86; TEMP 97.8; O2SAT 96
[2024-04-26] MEDS: DIVALPROEX SODIUM 125 MG CAP.SPRINK PO SCH (13:15)
[2024-04-26 16:00] VITALS: BP 121/78; TEMP 98; O2SAT 96
[2024-04-26 20:00] VITALS: BP 122/78; TEMP 97.6; O2SAT 97
[2024-04-27 08:00] VITALS: BP 109/87; TEMP 98.7; O2SAT 94
[2024-04-27] MEDS: LORAZEPAM 0.5 MG TABLET PO PRN (14:36)
[2024-04-27 16:00] VITALS: BP 112/87; TEMP 98.6; O2SAT 97
[2024-04-27 21:10] VITALS: BP 115/87; TEMP 98.2; O2SAT 98
[2024-04-28 08:00] VITALS: BP 105/79; TEMP 97.8; O2SAT 97
[2024-04-28] MEDS: BISACODYL SUPP (10 MG) 10 MG/SUPP.RECT SUPP.RECT RC PRN (09:20)
[2024-04-28 16:00] VITALS: BP 100/76; TEMP 97.9; O2SAT 96
[2024-04-29 08:00] VITALS: BP 101/87; TEMP 98.7; O2SAT 98
[2024-04-29] MEDS: risperiDONE 1 MG TABLET PO SCH (12:42)
[2024-04-29 16:00] VITALS: BP 100/56; TEMP 97.9; O2SAT 98
[2024-04-29 20:24] VITALS: BP 106/83; TEMP 98.3; O2SAT 97
[2024-04-30 08:00] VITALS: BP 112/87; TEMP 97.8; O2SAT 97
[2024-04-30 20:20] VITALS: BP 101/78; TEMP 97.9; O2SAT 96
[2024-04-30] MEDS: ATORVASTATIN 10 MG TABLET PO SCH (21:25)
[2024-05-01 14:46] VITALS: O2SAT 94
[2024-05-01 15:01] VITALS: O2SAT 94; O2SAT 98
[2024-05-01 16:00] VITALS: BP 102/76; TEMP 98.7; O2SAT 97
[2024-05-01 20:00] VITALS: BP 90/76; TEMP 98.2; O2SAT 99
[2024-05-02 08:00] VITALS: BP 103/79; TEMP 97.8; O2SAT 97
[2024-05-02 08:13] VITALS: O2SAT 94
[2024-05-02 08:23] VITALS: O2SAT 99
[2024-05-02 08:24] LABS: ALANINE AMINOTRANSFERASE < 6 U/L (12-78); ALBUMIN 2.4 g/dL (3.4-5.0); ALKALINE PHOSPHATASE 62 U/L (46-116); ASPARTATE AMINOTRANSFERASE 5 U/L (15-37); BILIRUBIN,DIRECT 0.1 mg/dL (0.0-0.2); BILIRUBIN,TOTAL 0.3 mg/dL (0.2-1.0); TOTAL PROTEIN, SERUM 6.8 g/dL (6.4-8.2)
[2024-05-02 16:00] VITALS: BP 113/80; TEMP 98; O2SAT 98
[2024-05-02] MEDS: IPRATROPIUM NEB FS 0.5 MG/2.5 ML AMPUL.NEB NEB SCH (19:30)
[2024-05-02 20:00] VITALS: BP 112/76; TEMP 98.2; O2SAT 100
[2024-05-03 00:40] VITALS: O2SAT 97
[2024-05-03 08:42] VITALS: BP 105/88; TEMP 98.5; O2SAT 99
[2024-05-03 16:00] VITALS: BP 92/72; TEMP 98; O2SAT 94
[2024-05-03] MEDS: risperiDONE 1 MG TABLET PO SCH ×2 (17:31→21:22)
[2024-05-03 20:00] VITALS: BP 109/68; TEMP 98.1; O2SAT 97
[2024-05-03 20:17] VITALS: O2SAT 95
[2024-05-04 08:00] VITALS: BP 105/77; TEMP 98; O2SAT 96
[2024-05-04] MEDS: DIVALPROEX SODIUM 125 MG CAP.SPRINK PO SCH (08:58)
[2024-05-04 09:57] LABS: BASOPHILS % (AUTO) 0.2 % (0.0-2.0); EOSINOPHILS % (AUTO) 0.7 % (0.0-6.0); HEMATOCRIT 40 % (39-51); HEMOGLOBIN 13.4 g/dL (13.5-17.5); LYMPHOCYTES # (AUTO) 1.9 K/uL (0.8-4.8); LYMPHOCYTES % (AUTO) 30.1 % (20.0-44.0); MEAN CORPUSCULAR HEMOGLOBIN 31 PG (26.0-33.0); MEAN CORPUSCULAR HGB CONC 34 g/dl (31.0-36.0); MEAN CORPUSCULAR VOLUME 92 fL (80-96); MONOCYTES # (AUTO) 0.5 K/uL (0.1-1.30); MONOCYTES % (AUTO) 8.2 % (2.0-12.0); NEUTROPHILS # (AUTO) 3.9 K/uL (1.8-8.9); NEUTROPHILS % (AUTO) 60.8 % (43.0-81.0); PLATELET COUNT (AUTO) 142 K/uL (150-450); RED BLOOD CELL COUNT(AUTO) 4.31 MIL/uL (4.5-6.0); RED CELL DISTRIBUTION WIDTH 15.7 % (11.5-15.0); WHITE BLOOD COUNT (AUTO) 6.4 K/uL (4.3-11.0)
[2024-05-04 10:41] LABS: CALCIUM, SERUM 9.2 mg/dL (8.5-10.1); CREATININE 0.6 mg/dL (0.6-1.3); POTASSIUM 4.4 mmol/L (3.5-5.1)
[2024-05-04] MEDS: LACTULOSE 10 G/15 ML UDC (PYXIS) PO ONE (11:15)
[2024-05-04 16:00] VITALS: BP 104/74; TEMP 98.1; O2SAT 98
[2024-05-04 19:55] VITALS: O2SAT 94
[2024-05-04 20:00] VITALS: BP 85/68; TEMP 98; O2SAT 96
[2024-05-05 07:33] LABS: BASOPHILS % (AUTO) 0.2 % (0.0-2.0); EOSINOPHILS # (AUTO) 0.1 K/uL (0.0-0.7); EOSINOPHILS % (AUTO) 0.9 % (0.0-6.0); HEMATOCRIT 39 % (39-51); HEMOGLOBIN 13.3 g/dL (13.5-17.5); LYMPHOCYTES # (AUTO) 2.2 K/uL (0.8-4.8); LYMPHOCYTES % (AUTO) 31.6 % (20.0-44.0); MEAN CORPUSCULAR HEMOGLOBIN 31 PG (26.0-33.0); MEAN CORPUSCULAR HGB CONC 35 g/dl (31.0-36.0); MEAN CORPUSCULAR VOLUME 91 fL (80-96); MONOCYTES # (AUTO) 0.7 K/uL (0.1-1.30); MONOCYTES % (AUTO) 10.7 % (2.0-12.0); NEUTROPHILS # (AUTO) 3.9 K/uL (1.8-8.9); NEUTROPHILS % (AUTO) 56.6 % (43.0-81.0); PLATELET COUNT (AUTO) 137 K/uL (150-450); RED BLOOD CELL COUNT(AUTO) 4.24 MIL/uL (4.5-6.0); RED CELL DISTRIBUTION WIDTH 15.3 % (11.5-15.0); WHITE BLOOD COUNT (AUTO) 6.8 K/uL (4.3-11.0)
[2024-05-05 07:48] LABS: ALBUMIN 2.3 g/dL (3.4-5.0); BILIRUBIN,TOTAL 0.3 mg/dL (0.2-1.0); CALCIUM, SERUM 9.3 mg/dL (8.5-10.1); CREATININE 0.6 mg/dL (0.6-1.3); POTASSIUM 4.3 mmol/L (3.5-5.1); TOTAL PROTEIN, SERUM 6.4 g/dL (6.4-8.2)
[2024-05-05 08:00] VITALS: BP 104/83; TEMP 98.4; O2SAT 97
[2024-05-05] MEDS: LACTULOSE 10 G/15 ML UDC (PYXIS) PO ONE (12:29)
[2024-05-05 16:08] VITALS: BP 100/76; TEMP 98.1; O2SAT 96
[2024-05-06 08:00] VITALS: BP 105/78; TEMP 98.6; O2SAT 98
[2024-05-06 16:00] VITALS: BP 100/84; TEMP 98.6; O2SAT 96
[2024-05-06] MEDS: OXCARBAZEPINE 150 MG TABLET PO SCH (16:56)
[2024-05-06 20:00] VITALS: BP 100/80; TEMP 98.2; O2SAT 98
[2024-05-06 20:58] VITALS: BP 100/80; TEMP 98.2; O2SAT 98
[2024-05-06] MEDS: TEMAZEPAM 7.5 MG CAPSULE PO PRN (21:38)
[2024-05-07 08:00] VITALS: BP 100/81; TEMP 98.2; O2SAT 98
[2024-05-07 12:09] LABS: BASOPHILS % (AUTO) 0.3 % (0.0-2.0); EOSINOPHILS # (AUTO) 0.1 K/uL (0.0-0.7); EOSINOPHILS % (AUTO) 0.9 % (0.0-6.0); HEMATOCRIT 40 % (39-51); HEMOGLOBIN 13.3 g/dL (13.5-17.5); LYMPHOCYTES # (AUTO) 1.9 K/uL (0.8-4.8); LYMPHOCYTES % (AUTO) 31.3 % (20.0-44.0); MEAN CORPUSCULAR HEMOGLOBIN 30 PG (26.0-33.0); MEAN CORPUSCULAR HGB CONC 33 g/dl (31.0-36.0); MEAN CORPUSCULAR VOLUME 91 fL (80-96); MONOCYTES # (AUTO) 0.6 K/uL (0.1-1.30); NEUTROPHILS # (AUTO) 3.4 K/uL (1.8-8.9); NEUTROPHILS % (AUTO) 57.5 % (43.0-81.0); PLATELET COUNT (AUTO) 131 K/uL (150-450); RED BLOOD CELL COUNT(AUTO) 4.44 MIL/uL (4.5-6.0); RED CELL DISTRIBUTION WIDTH 15.3 % (11.5-15.0); WHITE BLOOD COUNT (AUTO) 5.9 K/uL (4.3-11.0)
[2024-05-07 12:13] LABS: SERUM AMMONIA 21 umol/L (11-32)
[2024-05-07 12:18] LABS: ALANINE AMINOTRANSFERASE < 6 U/L (12-78); ALBUMIN 2.3 g/dL (3.4-5.0); ALKALINE PHOSPHATASE 64 U/L (46-116); ASPARTATE AMINOTRANSFERASE 8 U/L (15-37); BILIRUBIN,TOTAL 0.3 mg/dL (0.2-1.0); CARBON DIOXIDE 26 mmol/L (21-32); CHLORIDE 105 mmol/L (98-107); CREATININE 0.6 mg/dL (0.6-1.3); GLUCOSE 112 mg/dL (74-106); POTASSIUM 4.5 mmol/L (3.5-5.1); SODIUM SERUM 141 mmol/L (136-145); TOTAL PROTEIN, SERUM 6.4 g/dL (6.4-8.2); UREA NITROGEN, BLOOD 8 mg/dL (7-18)
[2024-05-07 16:00] VITALS: BP 100/74; TEMP 98; O2SAT 97
[2024-05-07 18:10] LABS: APPEARANCE,URINE CLEAR (CLEAR); BILIRUBIN,URINE NEGATIVE (NEGATIVE); BLOOD, URINE NEGATIVE Ery/uL (NEGATIVE); COLOR,URINE YELLOW (YELLOW); KETONES,URINE NEGATIVE (NEGATIVE); LEUKOCYTE ESTERASE ,URINE NEGATIVE (NEGATIVE); NITRITE, URINE NEGATIVE (NEGATIVE); PROTEIN,URINE NEGATIVE (NEGATIVE); UGLUCOSE NEGATIVE (NEGATIVE); UROBILINOGEN,URINE 0.2 EU/dL (0.2)
[2024-05-07 20:40] VITALS: BP 98/64; TEMP 98.4; O2SAT 99
[2024-05-07 20:41] VITALS: BP 94/64; TEMP 98.2; O2SAT 97
[2024-05-08 08:00] VITALS: BP 108/87; TEMP 97.9; O2SAT 96
[2024-05-08] MEDS: risperiDONE 1 MG TABLET PO SCH (12:20)
[2024-05-08] MEDS: OXCARBAZEPINE 150 MG TABLET PO SCH (13:00)
[2024-05-08 16:00] VITALS: BP 99/78; TEMP 97.9; O2SAT 96
[2024-05-08 20:00] VITALS: BP 96/79; TEMP 97.7; O2SAT 97
[2024-05-09 08:00] VITALS: BP 104/85; TEMP 98.6; O2SAT 99
[2024-05-09] MEDS ORDERED: risperiDONE 1 MG TABLET PO SCH (08:00)
[2024-05-09] MEDS: LORAZEPAM INJ 2 MG/ML VIAL IM ONE (10:23)
[2024-05-09] MEDS: OLANZAPINE 10 MG VIAL IM ONE (10:23)
[2024-05-09 16:00] VITALS: BP 109/81; TEMP 98; O2SAT 97
[2024-05-09] MEDS: risperiDONE 1 MG TABLET PO SCH (17:00)
[2024-05-09 20:00] VITALS: BP 110/75; TEMP 98.4; O2SAT 97
[2024-05-10 08:00] VITALS: BP 104/76; TEMP 97.7; O2SAT 94
[2024-05-10 16:00] VITALS: BP 110/73; TEMP 98; O2SAT 98
[2024-05-11 08:00] VITALS: BP 97/67; TEMP 98; O2SAT 98
[2024-05-11 16:00] VITALS: BP 99/60; TEMP 98; O2SAT 98
[2024-05-11 20:00] VITALS: BP 96/75; TEMP 98.4; O2SAT 97
[2024-05-12 07:28] LABS: BASOPHILS # (AUTO) 0.1 K/uL (0.0-0.2); BASOPHILS % (AUTO) 0.7 % (0.0-2.0); EOSINOPHILS # (AUTO) 0.3 K/uL (0.0-0.7); EOSINOPHILS % (AUTO) 2.6 % (0.0-6.0); HEMATOCRIT 37 % (39-51); HEMOGLOBIN 12.5 g/dL (13.5-17.5); LYMPHOCYTES # (AUTO) 2.3 K/uL (0.8-4.8); LYMPHOCYTES % (AUTO) 22.6 % (20.0-44.0); MEAN CORPUSCULAR HEMOGLOBIN 31 PG (26.0-33.0); MEAN CORPUSCULAR HGB CONC 34 g/dl (31.0-36.0); MEAN CORPUSCULAR VOLUME 92 fL (80-96); MONOCYTES # (AUTO) 0.8 K/uL (0.1-1.30); MONOCYTES % (AUTO) 8.2 % (2.0-12.0); NEUTROPHILS # (AUTO) 6.6 K/uL (1.8-8.9); NEUTROPHILS % (AUTO) 65.9 % (43.0-81.0); PLATELET COUNT (AUTO) 119 K/uL (150-450); RED BLOOD CELL COUNT(AUTO) 3.99 MIL/uL (4.5-6.0); RED CELL DISTRIBUTION WIDTH 14.9 % (11.5-15.0)
[2024-05-12 08:00] VITALS: BP 106/93; TEMP 98.4; O2SAT 97
[2024-05-12 16:00] VITALS: BP 100/71; TEMP 98.8; O2SAT 98
[2024-05-12 20:35] VITALS: BP 101/78; TEMP 98.4; O2SAT 98
[2024-05-13 08:00] VITALS: BP 105/76; TEMP 98; O2SAT 96
[2024-05-13 16:00] VITALS: BP 111/73; TEMP 98.1; O2SAT 96
[2024-05-13 20:00] VITALS: BP 98/77; TEMP 98; O2SAT 96
[2024-05-14 08:00] VITALS: BP 100/71; TEMP 97.7; O2SAT 100
[2024-05-14 13:05] VITALS: O2SAT 97
[2024-05-14] MEDS: LEVETIRACETAM (250 MG) 250 MG TABLET PO SCH (13:08)
[2024-05-14 13:16] VITALS: O2SAT 99
== END 2024-05-14 14:00 | DRG 885 ==
LOC: ER 18:39 → GPS 23:36
PROVIDERS: ADMIT Psychiatry & Neurology Psychosomatic Medicine; ATTEND Nurse Practitioner Family
DX: F20.9 Schizophrenia, unspecified (principal); E44.0 Moderate protein-calorie malnutrition; F02.83 Dementia in other diseases classified elsewhere, unspecified severity, with mood disturbance; F02.818 Dementia in other diseases classified elsewhere, unspecified severity, with other behavioral disturbance; G40.909 Epilepsy, unspecified, not intractable, without status epilepticus; J44.9 Chronic obstructive pulmonary disease, unspecified; S06.9XAS Unspecified intracranial injury with loss of consciousness status unknown, sequela; V49.9XXS Car occupant (driver) (passenger) injured in unspecified traffic accident, sequela; E88.09 Other disorders of plasma-protein metabolism, not elsewhere classified; Z68.22 Body mass index [BMI] 22.0-22.9, adult; G47.00 Insomnia, unspecified; E78.5 Hyperlipidemia, unspecified; S01.112A Laceration without foreign body of left eyelid and periocular area, initial encounter; Y04.0XXA Assault by unarmed brawl or fight, initial encounter; Y92.230 Patient room in hospital as the place of occurrence of the external cause; E55.9 Vitamin D deficiency, unspecified; E11.9 Type 2 diabetes mellitus without complications; Z79.899 Other long term (current) drug therapy; G24.01 Drug induced subacute dyskinesia
CPT/HCPCS: 36415; 70450-TC; 70486-TC; 71045-TC; 80048-TC; 80053-TC; 80061-TC; 80076-TC; 80164-TC; 81001; 82140-TC; 82962-TC; 83605-TC; 85025-TC; 87081-TC; 87086-TC; 92526; 92611-TC; 94760-TC; 94762-TC; 94799-TC; 97110-TC; 97112-TC; 97530-TC; G0480; J0515; J2060; J3490